=== PATIENT | male | born 1975 | race African-American/Black ===

== ENCOUNTER 2020-08-28 15:33 | Observation (INO) ==
[2020-08-28] MEDS ORDERED: KETOROLAC 30 MG/1 ML VIAL IM STA (19:01)
[2020-08-28] MEDS ORDERED: ORPHENADRINE 60 MG/2 ML VIAL IM STA (19:02)
[2020-08-28 19:22] LABS: Basophils % 0.1 % (0.0-0.8); Eosinophils % 0.1 % (0.00-10.9); Hematocrit 42.7 VOL% (42.0-52.0); Hemoglobin 13.7 GM/DL (14.0-18.0); Immature Granulocytes % 0.4 %; Immature Granulocytes Absolute 0.06 #; Lymphocytes # 0.9 10*3/uL (1.4-4.0); Lymphocytes % 5.9 % (21.2-54.2); Mean Corpuscular HGB Conc 32.1 GM/DL (32-36); Mean Corpuscular Volume 90.3 FL (87-102); Mean Platelet Volume 10.2 FL (9.6-12.0); Monocytes % 5.1 % (1.7-12.7); Neutrophils % 88.4 % (38.7-73.9); Platelet Count 199 T/CUMM (130-400); Red Blood Count 4.73 MC/CUMM (3.8-5.5); Red Cell Distribution Width 14.9 % (9.3-17.3); White Blood Count 14.7 T/CUMM (4-12)
[2020-08-28 19:40] LABS: Calcium 9.3 MG/DL (8.5-10.1); Osmolality,Calculated 284.1 MOS/KG (273-304); Potassium 4.4 MMOL/L (3.5-5.1)
[2020-08-28] MEDS ORDERED: ONDANSETRON ODT 4 MG TABLET PO STA (19:40)
[2020-08-28] MEDS ORDERED: SODIUM CHLORIDE 0.9% 1,000 ML IV STA (19:48)
[2020-08-28] MEDS ORDERED: cefTRIAXone 1,000 MG in SODIUM CHLORIDE 0.9% 100 ML IV STA (20:14)
[2020-08-28] MEDS ORDERED: ONDANSETRON 4 MG/2 ML VIAL IV ONE (20:14)
[2020-08-28] MEDS ORDERED: cefTRIAXone 1,000 MG VIAL ONE (20:16)
[2020-08-28 20:30] LABS: Bilirubin,Urine Negative (Negative); Blood, Urine Large mg/dL (Negative); Glucose,Urine (UA) Negative (Negative); Ketones,Urine Negative (Negative); Nitrite,Urine Negative (Negative); Protein,Urine Negative; Urine Appearance Slightly Hazy (Clear); Urine Color Yellow (Yellow); Urine Specific Gravity 1.011 (1.001-1.035); Urine Urobilinogen < 2.0 EU/DL (0.2-1.0)
[2020-08-28 20:35] LABS: Mucus,Urine Occasional /LPF (Occasional); RBC,Urine 313 /HPF (0-4); Squamous Epithelial Cell,Urine Occasional /HPF (0-10); WBC,Urine 39 /HPF (0-6)
[2020-08-28] MEDS ORDERED: HYDROmorphone 2 MG/1 ML VIAL IV STA (20:47)
[2020-08-28] MEDS ORDERED: ACETAMINOPHEN 325 MG TABLET PO PRN (20:50)
[2020-08-28] MEDS ORDERED: HYDROmorphone 2 MG/1 ML VIAL IV PRN (20:50)
[2020-08-28] MEDS ORDERED: ONDANSETRON 4 MG/2 ML VIAL IV PRN (20:50)
[2020-08-28] MEDS ORDERED: cefTRIAXone 1,000 MG in SYRINGE 1 EACH IV SCH (21:00)
[2020-08-29] MEDS ORDERED: HYDROmorphone 2 MG/1 ML VIAL IV PRN (00:01)
[2020-08-29] MEDS: SODIUM CHLORIDE 0.9% 1,000 ML IV SCH ×5 (01:53→23:22)
[2020-08-29] MEDS ORDERED: cefTRIAXone 1,000 MG in SYRINGE 1 EACH IV SCH ×2 (07:00→20:00)
[2020-08-29] MEDS ORDERED: MIDAZOLAM 2 MG/2 ML VIAL ONE (07:22)
[2020-08-29] MEDS ORDERED: fentaNYL 100 MCG/2 ML VIAL ONE (07:22)
[2020-08-29] MEDS ORDERED: cefTRIAXone 1,000 MG VIAL ONE (07:48)
[2020-08-29] MEDS ORDERED: ONDANSETRON 4 MG/2 ML VIAL ONE (08:05)
[2020-08-29] MEDS ORDERED: propofoL 200 MG/20 ML VIAL IV ONE (08:06)
[2020-08-29] MEDS ORDERED: SEVOFLURANE 1 UNIT/15 MINUTE INH ONE (08:06)
[2020-08-29] MEDS ORDERED: LIDOCAINE 2% 5 ML VIAL ONE (08:06)
[2020-08-29] MEDS ORDERED: INFLUENZA VIRUS VACCINE 0.5 ML SYRINGE IM ONE (09:00)
[2020-08-29] MEDS ORDERED: oxyCODONE/ACETAMINOPHEN 5-325 MG TABLET PO PRN (10:43)
[2020-08-30 07:40] LABS: Basophils % 0.1 % (0.0-0.8); Eosinophils # 0.1 10*3/uL (0.0-0.87); Eosinophils % 0.7 % (0.00-10.9); Hematocrit 38.5 VOL% (42.0-52.0); Hemoglobin 12.4 GM/DL (14.0-18.0); Immature Granulocytes % 0.4 %; Immature Granulocytes Absolute 0.05 #; Lymphocytes # 1.8 10*3/uL (1.4-4.0); Lymphocytes % 15.8 % (21.2-54.2); Mean Corpuscular HGB Conc 32.2 GM/DL (32-36); Mean Platelet Volume 9.8 FL (9.6-12.0); Monocytes % 6.3 % (1.7-12.7); Neutrophils % 76.7 % (38.7-73.9); Platelet Count 173 T/CUMM (130-400); Red Blood Count 4.23 MC/CUMM (3.8-5.5); Red Cell Distribution Width 14.9 % (9.3-17.3); White Blood Count 11.4 T/CUMM (4-12)
[2020-08-30 07:57] LABS: Calcium 8.3 MG/DL (8.5-10.1); Osmolality,Calculated 279.4 MOS/KG (273-304); Potassium 3.6 MMOL/L (3.5-5.1)
[2020-08-30] MEDS: SODIUM CHLORIDE 0.9% 1,000 ML IV SCH ×2 (09:26→13:21)
[2020-08-30 12:05] VITALS: BP 166/96
== END 2020-08-30 13:35 | disposition home or self-care (01) ==
LOC: N.EDINP 15:33 → N.ED 15:33 → N.3E 21:41
PROVIDERS: ADMIT Surgery; ATTEND Surgery